=== PATIENT | male | born 1985 | race Caucasian/White ===

== ENCOUNTER 2022-11-16 12:03 | Emergency (ER) | payer MEDICAID, OTHER ==
[~2022-11-16] VITALS: Ht 167.6 cm; Wt 75.0 kg
[2022-11-16 12:05] VITALS: BP 123/89
[2022-11-16] MEDS ORDERED: KETOROLAC 60MG/2ML VIAL IM STA (12:41)
[2022-11-16] MEDS ORDERED: TETANUS, DIPHTHERIA, PERTUSSIS VAC/PF 0.5ML (>10YR OLD) IM ONE (12:45)
[2022-11-16] MEDS ORDERED: LIDOCAINE HCL/PF 1% 10 MG/ML 5ML VIAL INFIL ONE (12:45)
[2022-11-16] MEDS ORDERED: BACITRACIN ZINC OINT UDPKT TOP ONE (12:45)
[2022-11-16] MEDS ORDERED: NAPR-681 MT (14:50)
== END 2022-11-16 15:30 | disposition home or self-care (01) ==
LOC: ER 12:16
DX: S91.311A Laceration without foreign body, right foot, initial encounter (principal); S93.401A Sprain of unspecified ligament of right ankle, initial encounter; X58.XXXA Exposure to other specified factors, initial encounter; Y93.89 Activity, other specified; Y92.89 Other specified places as the place of occurrence of the external cause; Y99.8 Other external cause status
CPT/HCPCS: 12004; 73590; 73610; 73630; 90471; 90715; 96372; 99284; J1885; J3490; Z7610

== ENCOUNTER 2023-09-18 11:01 | Emergency (ER) | payer BC, MEDICAID ==
[~2023-09-18] VITALS: Ht 160 cm; Wt 75.0 kg
[~2023-09-18 11:01] MED LIST: NAPR-681 MT
[2023-09-18 11:04] VITALS: O2SAT 97
[2023-09-18] MEDS ORDERED: CEFTRIAXONE 1GM PREMIX 50 ML IV ONE (11:30)
[2023-09-18] MEDS ORDERED: SODIUM CHLORIDE 0.9% 1000ML BAG (SEPSIS BOLUS) IV ONE (11:30)
[2023-09-18 12:01] LABS: BASOPHILS % 0.9 % (0.0-2.0); EOSINOPHILS % 11.5 % (0.0-5.0); HEMATOCRIT. 45.3 % (42.0-52.0); HEMOGLOBIN. 15.5 g/dL (14.0-18.0); MEAN CORPUSCULAR HEMOGLOBIN 30.7 pg (28.0-32.0); MEAN CORPUSCULAR HGB CONC 34.3 g/dL (31.0-37.0); MEAN CORPUSCULAR VOLUME 89.3 fL (80.0-94.0); MEAN PLATELET VOLUME 7.9 fl (7.4-10.4); NEUTROPHILS % 45.6 % (40.0-76.0); PLATELET 267 x1000/uL (130-400); RED BLOOD CELL COUNT 5.07 mill/uL (4.7-6.1); RED CELL DISTRIBUTION WIDTH 14.1 % (11.6-14.6); WHITE BLOOD COUNT 6.6 x1000/uL (4.5-11.0)
[2023-09-18 12:22] LABS: ALANINE AMINOTRANSFERASE 18 IU/L (10-49); ALBUMIN 4.3 g/dL (3.2-4.8); ASPARTATE AMINOTRANSFERASE 24 IU/L (<34); BILIRUBIN TOTAL 0.8 mg/dL (0.1-1.0); CARBON DIOXIDE 26 mEq/L (21-32); CHLORIDE 103 mEq/L (98-107); CREATININE 0.6 mg/dL (0.6-1.3); GLUCOSE 128 mg/dL (70-105); POTASSIUM 3.3 mEq/L (3.5-5.1); PROTEIN TOTAL 6.6 g/dL (6.0-8.3); SODIUM 138 mEq/L (136-145); UREA NITROGEN BLOOD 13 mg/dL (9-23)
[2023-09-18] MEDS ORDERED: NAPR-681 PO (13:56)
[2023-09-18] MEDS ORDERED: MECL-299 MT (13:56)
[2023-09-18] MEDS ORDERED: POTA10CA83 PO (13:58)
[2023-09-18 14:58] VITALS: BP 127/78; PULSE 92; RESP 16; TEMP 98.1
== END 2023-09-18 15:00 | disposition home or self-care (01) ==
LOC: ER 11:55
DX: S00.93XA Contusion of unspecified part of head, initial encounter (principal); S16.1XXA Strain of muscle, fascia and tendon at neck level, initial encounter; E87.6 Hypokalemia; Z88.0 Allergy status to penicillin; W21.89XA Striking against or struck by other sports equipment, initial encounter; Y93.89 Activity, other specified; Y92.89 Other specified places as the place of occurrence of the external cause; Y99.8 Other external cause status
CPT/HCPCS: 36415; 80053; 85025; 99284; J7030